=== PATIENT | male | born 1950 | race Caucasian/White ===

== ENCOUNTER → 2016-10-26 | Outpatient (CLI) | payer OTHER | LOC: KOH-I 09:47 | DX: K76.9 Liver disease, unspecified (principal); R11.2 Nausea with vomiting, unspecified; R74.8 Abnormal levels of other serum enzymes; Z85.818 Personal history of malignant neoplasm of other sites of lip, oral cavity, and pharynx; K76.0 Fatty (change of) liver, not elsewhere classified; N28.89 Other specified disorders of kidney and ureter; I77.811 Abdominal aortic ectasia | CPT/HCPCS: 76700 ==

== ENCOUNTER → 2016-11-06 | Outpatient (CLI) | payer OTHER | LOC: MRI 13:38 | DX: K76.9 Liver disease, unspecified (principal); R74.8 Abnormal levels of other serum enzymes; Z85.819 Personal history of malignant neoplasm of unspecified site of lip, oral cavity, and pharynx; Z86.2 Personal history of diseases of the blood and blood-forming organs and certain disorders involving the immune mechanism; Z90.49 Acquired absence of other specified parts of digestive tract | CPT/HCPCS: 74181 ==